=== PATIENT | female | born 1940 | race Caucasian/White ===

== ENCOUNTER 2018-05-28 21:20 | Inpatient (IN) | payer MEDICARE ==
[~2018-05-28] VITALS: Ht 154.9 cm; Wt 70.5 kg
[2018-05-28] MEDS ORDERED: ACETAMINOPHEN 325 MG TABLET PO ONE (22:15)
[2018-05-28] MEDS ORDERED: MEMA5 PO (22:18)
[2018-05-28] MEDS ORDERED: RIVA20TA PO (22:18)
[2018-05-28] MEDS ORDERED: MIDO5TAB23 PO (22:18)
[2018-05-28] MEDS ORDERED: METF-960 PO (22:18)
[2018-05-28] MEDS ORDERED: FURO40 PO (22:18)
[2018-05-28] MEDS ORDERED: INSLAN SQ (22:18)
[2018-05-28] MEDS ORDERED: ATOR10TA84 PO (22:18)
[2018-05-28] MEDS ORDERED: INSU100V3 SQ (22:18)
[2018-05-28] MEDS ORDERED: VITAD1000 PO (22:18)
[2018-05-28 22:29] LABS: GLUCOSE,POINT OF CARE 281 MG/DL (70-110)
[2018-05-29] MEDS ORDERED: IBUPROFEN 600 MG TABLET PO ONE (01:15)
[2018-05-29 02:50] LABS: BASOPHILS % (AUTO) 0.9 % (0.0-2.0); EOSINOPHILS % (AUTO) 0.8 % (1.0-6.0); HEMATOCRIT 32.7 % (36-46); LYMPHOCYTES # (AUTO) 1.7 K/uL (1.0-4.8); LYMPHOCYTES % (AUTO) 29.5 % (22.0-44.0); MEAN CORPUSCULAR HEMOGLOBIN 34.4 pg (26.0-34.0); MEAN CORPUSCULAR HGB CONC 33.6 G/dL (31.0-37.0); MEAN CORPUSCULAR VOLUME 103 fL (80-100); MONOCYTES # (AUTO) 0.6 K/uL (0.1-1.0); MONOCYTES % (AUTO) 9.3 % (2.0-9.0); NEUTROPHILS # (AUTO) 3.5 K/uL (1.8-7.7); NEUTROPHILS % (AUTO) 59.5 % (40.0-70.0); PLATELET COUNT (AUTO) 167 K/uL (150-450); RED BLOOD CELL COUNT(AUTO) 3.19 MIL/uL (4.00-5.20); RED CELL DISTRIBUTION WIDTH 12.7 % (11.5-14.5)
[2018-05-29 02:59] LABS: CALCIUM, TOTAL 10.2 mg/dL (8.8-10.5); CREATININE 1.8 mg/dL (0.60-1.30); POTASSIUM 4.7 mmol/L (3.5-5.1)
[2018-05-29] MEDS ORDERED: METOCLOPRAMIDE HCL 5 MG/ML 2 ML VIAL IVP ONE (03:00)
[2018-05-29 03:05] LABS: ALBUMIN 3.4 g/dL (3.4-5.0); BILIRUBIN,TOTAL 0.3 mg/dL (0.1-1.0); TOTAL PROTEIN, SERUM 8.1 g/dL (6.4-8.2)
[2018-05-29] MEDS ORDERED: SODIUM CHLORIDE 0.9% 1,000 ML IV ONE (03:15)
[2018-05-29] MEDS ORDERED: MORPHINE SULFATE 2 MG/ML SYRINGE IVP PRN (05:45)
[2018-05-29] MEDS ORDERED: MORPHINE SULFATE 4 MG/ML SYRINGE IVP ONE (05:45)
[2018-05-29] MEDS ORDERED: ONDANSETRON HCL 4 MG/2 ML VIAL IVP PRN ×2 (05:45→11:15)
[2018-05-29] MEDS ORDERED: ACETAMINOPHEN 325 MG TABLET PO PRN ×2 (05:45→11:15)
[2018-05-29] MEDS ORDERED: 0.9% SODIUM CHLORIDE 10 ML SYRINGE IVP PRN (05:45)
[2018-05-29] MEDS ORDERED: ONDANSETRON HCL 4 MG/2 ML VIAL IVP ONE (06:00)
[2018-05-29 09:10] LABS: GLUCOSE,POINT OF CARE 137 MG/DL (70-110)
[2018-05-29] MEDS ORDERED: BISACODYL 10 MG RECTAL RECTAL SUPPOSITORY PR PRN (11:15)
[2018-05-29] MEDS ORDERED: ZOLPIDEM TARTRATE 5 MG TABLET PO PRN (11:15)
[2018-05-29] MEDS ORDERED: MAGNESIUM HYDROXIDE SUSPENSION 30 ML UDCUP PO PRN (11:15)
[2018-05-29 12:49] LABS: GLUCOSE,POINT OF CARE 171 MG/DL (70-110)
[2018-05-29 14:42] VITALS: BP 126/62
[2018-05-29 15:30] VITALS: BP 111/69
[2018-05-29] MEDS: RIVAROXABAN 20 MG TABLET PO SCH (17:23)
[2018-05-29 19:35] VITALS: BP 112/60
[2018-05-29] MEDS: DOCUSATE SODIUM 100 MG CAPSULE PO SCH (20:02)
[2018-05-29] MEDS: MIDODRINE HCL 5 MG TABLET PO SCH (20:02)
[2018-05-29] MEDS: INSULIN GLARGINE,HUM.REC.ANLOG 100 UNITS/ML SQ SCH (20:31)
[2018-05-29 23:45] LABS: GLUCOMETER DEV NAME(LOC) 5S.2; GLUCOSE,POINT OF CARE 213 MG/DL (70-110)
[2018-05-30] VITALS (7 sets, daily range): BP systolic 99–139; BP diastolic 55–72
[2018-05-30 05:55] LABS: BASOPHILS % (AUTO) 0.6 % (0.0-2.0); EOSINOPHILS % (AUTO) 1.6 % (1.0-6.0); HEMATOCRIT 32.1 % (36-46); HEMOGLOBIN 10.9 g/dL (12.0-16.0); LYMPHOCYTES # (AUTO) 1.2 K/uL (1.0-4.8); LYMPHOCYTES % (AUTO) 22.4 % (22.0-44.0); MEAN CORPUSCULAR HEMOGLOBIN 34.1 pg (26.0-34.0); MEAN CORPUSCULAR HGB CONC 33.9 G/dL (31.0-37.0); MEAN CORPUSCULAR VOLUME 101 fL (80-100); MONOCYTES # (AUTO) 0.5 K/uL (0.1-1.0); NEUTROPHILS # (AUTO) 3.4 K/uL (1.8-7.7); NEUTROPHILS % (AUTO) 66.4 % (40.0-70.0); PLATELET COUNT (AUTO) 209 K/uL (150-450); RED BLOOD CELL COUNT(AUTO) 3.18 MIL/uL (4.00-5.20); RED CELL DISTRIBUTION WIDTH 12.8 % (11.5-14.5)
[2018-05-30 06:13] LABS: ALBUMIN 2.9 g/dL (3.4-5.0); BILIRUBIN,TOTAL 0.3 mg/dL (0.1-1.0); CALCIUM, TOTAL 9.7 mg/dL (8.8-10.5); CREATININE 1.36 mg/dL (0.60-1.30); POTASSIUM 3.9 mmol/L (3.5-5.1); TOTAL PROTEIN, SERUM 7.3 g/dL (6.4-8.2)
[2018-05-30] MEDS: DOCUSATE SODIUM 100 MG CAPSULE PO SCH ×2 (08:22→19:56)
[2018-05-30] MEDS: FUROSEMIDE 40 MG TABLET PO SCH (08:22)
[2018-05-30] MEDS: CHOLECALCIFEROL (VIT D3) 1,000 UNITS TABLET PO SCH (08:22)
[2018-05-30] MEDS: PANTOPRAZOLE SODIUM 40 MG DR TABLET PO SCH (08:22)
[2018-05-30] MEDS: MEMANTINE HCL 5 MG TABLET PO SCH (08:22)
[2018-05-30] MEDS: ATORVASTATIN CALCIUM 10 MG TABLET PO SCH (08:22)
[2018-05-30] MEDS: MIDODRINE HCL 5 MG TABLET PO SCH ×2 (08:22→19:56)
[2018-05-30] MEDS: RIVAROXABAN 20 MG TABLET PO SCH (17:45)
[2018-05-30] MEDS: INSULIN GLARGINE,HUM.REC.ANLOG 100 UNITS/ML SQ SCH (20:33)
[2018-05-30 21:39] LABS: GLUCOMETER DEV NAME(LOC) 5N.2; GLUCOSE,POINT OF CARE 270 MG/DL (70-110)
[2018-05-31 04:52] VITALS: BP 126/66
[2018-05-31 07:31] VITALS: BP 132/67
[2018-05-31] MEDS: ATORVASTATIN CALCIUM 10 MG TABLET PO SCH (08:36)
[2018-05-31] MEDS: FUROSEMIDE 40 MG TABLET PO SCH (08:36)
[2018-05-31] MEDS: PANTOPRAZOLE SODIUM 40 MG DR TABLET PO SCH (08:36)
[2018-05-31] MEDS: CHOLECALCIFEROL (VIT D3) 1,000 UNITS TABLET PO SCH (08:36)
[2018-05-31] MEDS: MIDODRINE HCL 5 MG TABLET PO SCH (08:36)
[2018-05-31] MEDS: DOCUSATE SODIUM 100 MG CAPSULE PO SCH (08:37)
[2018-05-31] MEDS: MEMANTINE HCL 5 MG TABLET PO SCH (08:37)
[2018-05-31 11:16] VITALS: BP 130/73
== END 2018-05-31 14:00 | disposition home health service (06) | DRG 55 ==
LOC: EMS 21:23 → 5S 05-29 13:13 → 5N 05-30 14:13
PROVIDERS: ADMIT Internal Medicine; ATTEND Internal Medicine
DX: C79.31 Secondary malignant neoplasm of brain (principal); N17.9 Acute kidney failure, unspecified; C49.9 Malignant neoplasm of connective and soft tissue, unspecified; I11.0 Hypertensive heart disease with heart failure; E78.5 Hyperlipidemia, unspecified; I50.9 Heart failure, unspecified; E11.9 Type 2 diabetes mellitus without complications; Z90.11 Acquired absence of right breast and nipple; Z88.5 Allergy status to narcotic agent; F03.90 Unspecified dementia, unspecified severity, without behavioral disturbance, psychotic disturbance, mood disturbance, and anxiety
CPT/HCPCS: 70450; 70460; 96374; 96375; G0378; J1815; J2270; J2405; J2765; J7030

== ENCOUNTER 2018-06-17 11:03 | Emergency (ER) | payer MEDICARE ==
[~2018-06-17] VITALS: Ht 154.9 cm; Wt 69.0 kg
[~2018-06-17 11:03] MED LIST: ATOR10TA84 PO; FURO40 PO; INSLAN SQ; INSU100V3 SQ; MEMA5 PO; METF-960 PO; MIDO5TAB23 PO; RIVA20TA PO; VITAD1000 PO
[2018-06-17] MEDS ORDERED: ACETAMINOPHEN 325 MG TABLET PO ONE (11:45)
[2018-06-17 11:50] LABS: GLUCOSE,POINT OF CARE 220 MG/DL (70-110)
[2018-06-17 13:33] VITALS: BP 128/65
== END 2018-06-17 14:26 | disposition home or self-care (01) ==
LOC: EMS 11:04
DX: R51 Headache (principal); E11.9 Type 2 diabetes mellitus without complications; I50.9 Heart failure, unspecified; Z88.5 Allergy status to narcotic agent; Z79.84 Long term (current) use of oral hypoglycemic drugs; Z79.899 Other long term (current) drug therapy; Z79.4 Long term (current) use of insulin
CPT/HCPCS: 70450

== ENCOUNTER 2018-06-19 01:17 | Emergency (ER) | payer MEDICARE ==
[~2018-06-19] VITALS: Ht 154.9 cm; Wt 68.2 kg
[2018-06-19 01:44] LABS: GLUCOSE,POINT OF CARE 244 MG/DL (70-110)
[2018-06-19] MEDS ORDERED: HYDROCODONE/ACETAMINOPHEN 5-325 MG TABLET PO ONE (01:45)
[2018-06-19 03:28] VITALS: BP 141/62
== END 2018-06-19 04:27 | disposition home or self-care (01) ==
LOC: EMS 01:19
DX: G89.3 Neoplasm related pain (acute) (chronic) (principal); C79.51 Secondary malignant neoplasm of bone; C80.1 Malignant (primary) neoplasm, unspecified; E11.9 Type 2 diabetes mellitus without complications; I50.9 Heart failure, unspecified; Z79.84 Long term (current) use of oral hypoglycemic drugs; Z79.4 Long term (current) use of insulin; Z79.899 Other long term (current) drug therapy; Z88.5 Allergy status to narcotic agent